=== PATIENT | female | born 1995 | race Caucasian/White ===

== ENCOUNTER 2021-10-31 10:35 | Emergency (ER) | payer BC, OTHER ==
[~2021-10-31 10:35] MED LIST: ALBUTEROL2.5 MG/3 M INH; CLARITIN 10MG T10 MG PO; MONTELUKAST SOD10 MG PO; PREDNISONE10 MG PO; VENTOLIN HFA 66.7 GM INH
[2021-10-31 12:02] LABS: HEMOGLOBIN 12.5 gm/dl (12.3-15.3); RED BLOOD COUNT 4.55 M/UL (4.00-5.10); WHITE BLOOD COUNT 8.5 K/UL (4.5-11.0)
[2021-10-31 12:46] LABS: BUN/CREATININE RATIO 15 (0-10)
== END 2021-10-31 14:40 | disposition home or self-care (01) ==
LOC: ER1 10:35
PROVIDERS: Nurse Practitioner
DX: R10.11 Right upper quadrant pain (principal); J45.909 Unspecified asthma, uncomplicated
CPT/HCPCS: 76705; 80053; 81001; 82150; 83690; 85025; 96374; 99284; J2405; Q9967

== ENCOUNTER → 2021-12-24 | Outpatient (CLI) | payer BC, OTHER | LOC: NM 12:45 | DX: R10.11 Right upper quadrant pain (principal) | CPT/HCPCS: 78227; A9537 ==